=== PATIENT | female | born 2000 ===

== ENCOUNTER → 2025-06-01 10:28 | Outpatient (REF) | payer OTHER, SELFPAY ==
[2025-06-03 13:32] LABS: Mumps Virus IgG Equivocal
[2025-06-03 15:17] LABS: Varicella Zoster IgG (VZV) Negative
== END ==
LOC: REG 10:28
PROVIDERS: ATTENDING PHYSICIAN Nurse Practitioner Family
DX: Z23 Encounter for immunization (principal)
CPT/HCPCS: 36415; 86480; 86735; 86762; 86765; 86787